=== PATIENT | male | born 1995 | race African-American/Black ===

== ENCOUNTER 2022-02-10 12:38 | Emergency (ER) | payer BC, SELFPAY ==
[2022-02-10] MEDS ORDERED: Ondansetron PF 4 MG/2 ML Vial ONE ×2 (13:16→15:48)
[2022-02-10 13:24] LABS: #Neutrophils 14.1 10x3/uL (1.5-8.4); %Basophils 0.1 % (0.0-2.0); %Lymphocytes 4.5 % (18.0-47.0); %Monocytes 6.3 % (0.0-10.0); %Neutrophils 88.7 % (40.0-75.0); Hemoglobin 15.2 g/dL (13.5-17.5); Mean Corpuscular HGB CONC 34.3 g/dL (32.0-36.0); Mean Corpuscular Hemoglobin 31.5 pg (27.0-33.0); Mean Corpuscular Volume 91.7 fl (81.2-95.1); Mean Platelet Volume 10.2 fl (7.4-10.4); Platelet Count 245 10x3/uL (150-450); RBC Distribution Width 15.6 % (11.5-14.5); Red Blood Cell (RBC) Count 4.83 10x6/uL (4.32-5.72); White Blood Cell (WBC) Count 15.8 10x3/uL (3.5-10.5)
[2022-02-10 13:44] LABS: ALT (SGPT) 47 U/L (8-55); AST (SGOT) 44 U/L (5-34); Albumin 4.8 g/dL (3.5-5.0); Alkaline Phosphatase 131 U/L (40-110); Anion Gap 22 mmol/L (10-20); BUN (Urea Nitrogen) 16 mg/dL (8.9-20.6); Bilirubin, Total 1.5 mg/dL (0.2-1.2); Calc. Creatinine Clearance 0 mL/min (70-130); Calcium 9.6 mg/dL (7.8-10.44); Carbon Dioxide 33 mmol/L (22-29); Chloride 90 mmol/L (98-107); Estimated GFR 52; Globulin 3.8 g/dL (2.4-3.5); Glucose 297 mg/dL (70-105); Lipase 22 U/L (8-78); Protein, Total 8.6 g/dL (6.0-8.3); Sodium 141 mmol/L (136-145)
[2022-02-10] MEDS ORDERED: Piperacillin/Tazobactam 3.375 GM VIAL ONE (15:06)
[2022-02-10] MEDS ORDERED: Bupivacaine 0.25% HCL 30 ML VIAL ONE (15:13)
[2022-02-10] MEDS ORDERED: EPINEPHrine 1 MG/ML AMP ONE (15:13)
[2022-02-10 15:19] LABS: Bilirubin 1+ (Negative); Blood, Urine 10 (Negative); Clarity Clear (Clear); Glucose, Urine (Dipstick) 50 mg/dL (Negative); Ketone, Urine 15 mg/dL (Negative); Leukocyte 25 (Negative); Nitrite Negative (Negative); Protein, Urine (Dipstick) 100 mg/dl (Neg-Trace)
[2022-02-10 15:28] LABS: SARS-CoV-2 NAA Rapid Test Not Detected (NotDetected)
[2022-02-10 15:28] LABS: Mucous/LPF 1+ LPF (<2+); WBC/HPF 0-3 HPF (0-3)
[2022-02-10] MEDS ORDERED: PROPOFOL 20 ML ONE (15:48)
[2022-02-10] MEDS ORDERED: Lidocaine 1% PF 5 ML VIAL ONE (15:48)
[2022-02-10] MEDS ORDERED: Dexamethasone 4 mg/ml Vial ONE (15:48)
[2022-02-10] MEDS ORDERED: Rocuronium Bromide 10 MG/ML (10ML VIAL) ONE (15:48)
[2022-02-10] MEDS ORDERED: Fentanyl 250 MCG/5 ML VIAL ONE (15:48)
[2022-02-10] MEDS ORDERED: Succinylcholine 200 MG/10 ml SYRINGE FS ONE (15:53)
[2022-02-10] MEDS ORDERED: Glycopyrrolate 0.2 MG/ML 5 ML SYRINGE ONE (16:37)
[2022-02-10] MEDS ORDERED: SUGAMMADEX SODIUM 200 MG/2 ML VIAL ONE (16:42)
[2022-02-10] MEDS ORDERED: HYDROcodone/Acetaminophen 5/325 mg Tablet ONE (18:03)
== END 2022-02-10 16:04 | disposition admitted as inpatient to this hospital (09) ==
LOC: CSHERS 12:38
DX: K35.80 Unspecified acute appendicitis (principal); Z20.822 Contact with and (suspected) exposure to COVID-19; F17.290 Nicotine dependence, other tobacco product, uncomplicated
CPT/HCPCS: 74177; 80053; 81003; 81015; 83690; 85025; 88304; 96374; 96375; A4649; J0171; J1100; J2405; J2543; J2704; J3010; S0020; U0002

== ENCOUNTER 2022-04-13 13:25 | Observation (INO) | payer SELFPAY ==
[2022-04-13 14:07] LABS: #Neutrophils 9.7 10x3/uL (1.5-8.4); %Basophils 0.3 % (0.0-2.0); %Eosinophils 0.2 % (0.0-6.0); %Lymphocytes 6.5 % (18.0-47.0); %Monocytes 8.7 % (0.0-10.0); %Neutrophils 83.9 % (40.0-75.0); Hemoglobin 16.3 g/dL (13.5-17.5); Mean Corpuscular HGB CONC 34.2 g/dL (32.0-36.0); Mean Corpuscular Hemoglobin 29.5 pg (27.0-33.0); Mean Corpuscular Volume 86.1 fl (81.2-95.1); Mean Platelet Volume 10.5 fl (7.4-10.4); Platelet Count 311 10x3/uL (150-450); Red Blood Cell (RBC) Count 5.53 10x6/uL (4.32-5.72); White Blood Cell (WBC) Count 11.6 10x3/uL (3.5-10.5)
[2022-04-13] MEDS ORDERED: Haloperidol Lactate 5 MG/ML VIAL ONE (14:11)
[2022-04-13 14:18] LABS: PTT 25.8 sec (22.0-33.0); Prothrombin Time 11.2 sec (9.5-12.1)
[2022-04-13 14:22] LABS: ALT (SGPT) 30 U/L (8-55); AST (SGOT) 49 U/L (5-34); Albumin 5.2 g/dL (3.5-5.0); Alkaline Phosphatase 142 U/L (40-110); Anion Gap 26 mmol/L (10-20); BUN (Urea Nitrogen) 12 mg/dL (8.9-20.6); Bilirubin, Total 1.3 mg/dL (0.2-1.2); Calc. Creatinine Clearance 0 mL/min (70-130); Carbon Dioxide 27 mmol/L (22-29); Chloride 93 mmol/L (98-107); Estimated GFR 62; Globulin 4.5 g/dL (2.4-3.5); Glucose 237 mg/dL (70-105); Potassium 4.3 mmol/L (3.5-5.1); Protein, Total 9.7 g/dL (6.0-8.3); Sodium 142 mmol/L (136-145)
[2022-04-13 14:31] LABS: CK (CPK) 766 U/L (30-200); Magnesium 1.4 mg/dL (1.6-2.6)
[2022-04-13 15:09] LABS: Bilirubin 1+ (Negative); Blood, Urine 150 (Negative); Glucose, Urine (Dipstick) 50 mg/dL (Negative); Ketone, Urine 15 mg/dL (Negative); Leukocyte 25 (Negative); Nitrite Positive (Negative); Protein, Urine (Dipstick) 500 mg/dl (Neg-Trace); Specific Gravity, Urine 1.025 (1.005-1.030)
[2022-04-13] MEDS ORDERED: Magnesium 2 GM/50 ML BAG (IN WATER) ONE (15:09)
[2022-04-13 15:17] LABS: Phosphorus 3.4 mg/dL (2.3-4.7)
[2022-04-13 15:29] LABS: Mucous/LPF 2+ LPF (<2+); Squamous Epithelial 0-3 HPF (0-3)
[2022-04-13 15:30] LABS: Bacteria/HPF 3+ HPF (None Seen)
[2022-04-13] MEDS ORDERED: cefTRIAXone\\ROCEPHIN 1 GM VIAL ONE (15:33)
[2022-04-13] MEDS ORDERED: Promethazine HCl 25 MG/ML VIAL ONE (16:13)
[2022-04-13 16:36] LABS: ALT (SGPT) 21 U/L (8-55); AST (SGOT) 37 U/L (5-34); Albumin 4.2 g/dL (3.5-5.0); Alkaline Phosphatase 111 U/L (40-110); Anion Gap 20 mmol/L (10-20); BUN (Urea Nitrogen) 12 mg/dL (8.9-20.6); CK (CPK) 794 U/L (30-200); Calc. Creatinine Clearance 0 mL/min (70-130); Calcium 8.3 mg/dL (7.8-10.44); Carbon Dioxide 27 mmol/L (22-29); Chloride 101 mmol/L (98-107); Estimated GFR 80; Globulin 3.4 g/dL (2.4-3.5); Glucose 116 mg/dL (70-105); Potassium 3.5 mmol/L (3.5-5.1); Protein, Total 7.6 g/dL (6.0-8.3); Sodium 144 mmol/L (136-145)
[2022-04-13 17:41] LABS: Actual Bicarbonate (HCO3v) 31 mEq/L (22-28); Base Excess 5.6 mEq/L (-2.0 to +3.0); Calcium, Ionized (venous) 0.98 mmol/L (1.16-1.32); Chloride (VBG) 101 mmol/L (98-106); Hemoglobin (Hb) 14.7 g/dL (13.2-17.3); Potassium (VBG) 3.53 mmol/L (3.70-5.30); Puncture Site Other Site; RapidComm Collect By LAB; Sodium 142.8 mmol/L (133-146); pH (venous) 7.44 (7.32-7.43)
[2022-04-13] MEDS ORDERED: Ondansetron ODT 4 MG TAB PO PRN (19:52)
[2022-04-13] MEDS ORDERED: Ondansetron PF 4 MG/2 ML Vial IVP PRN (19:52)
[2022-04-13] MEDS ORDERED: hydrALAZINE 20 MG/ML VIAL SLOW IVP PRN (19:57)
[2022-04-13] MEDS ORDERED: Promethazine HCl 12.5 MG in Sodium Chloride 0.9% 50 ML IVPB PRN (19:59)
[2022-04-13] MEDS ORDERED: Electrolyte Replacement Protocol 1 EACH FS PRN (20:00)
[2022-04-13] MEDS: Famotidine/PF 20 mg/2ml Vial SLOW IVP SCH (20:21)
[2022-04-13] MEDS: Sodium Chloride 0.9% 1,000 ML IV SCH (20:21)
[2022-04-13 20:39] LABS: Amphetamine Not Detected (NotDetected); Barbiturates Screen Not Detected (NotDetected); Benzodiazepine Screen Not Detected (NotDetected); Cocaine Metabolite Screen Not Detected (NotDetected); Methadone Not Detected (NotDetected); Methamphetamine Not Detected (NotDetected); Opiate Screen Not Detected (NotDetected); Oxycodone Screen Not Detected (NotDetected); Phencyclidine (PCP) Not Detected (NotDetected); THC/Cannabinoid Screen Detected (NotDetected); Tricyclic Screen Not Detected (NotDetected)
[2022-04-13] MEDS ORDERED: Potassium Chloride 20 MEQ TAB PO SCH (20:45)
[2022-04-13] MEDS ORDERED: Magnesium 2 GM/50 ML(in water) 2 GM in Premix Bag 1 BAG IVPB SCH (20:45)
[2022-04-13] MEDS ORDERED: HYDROcodone/Acetaminophen 5/325 mg Tablet PO SCH (21:00)
[2022-04-13 21:32] LABS: SARS-CoV-2 NAA Rapid Test Not Detected (NotDetected)
[2022-04-13 22:40] LABS: ALT (SGPT) 23 U/L (8-55); AST (SGOT) 45 U/L (5-34); Alkaline Phosphatase 99 U/L (40-110); Anion Gap 14 mmol/L (10-20); BUN (Urea Nitrogen) 12 mg/dL (8.9-20.6); Bilirubin, Total 0.6 mg/dL (0.2-1.2); Calc. Creatinine Clearance 72 mL/min (70-130); Calcium 8.2 mg/dL (7.8-10.44); Carbon Dioxide 28 mmol/L (22-29); Chloride 104 mmol/L (98-107); Estimated GFR 86; Glucose 101 mg/dL (70-105); Potassium 3.7 mmol/L (3.5-5.1); Sodium 142 mmol/L (136-145)
[2022-04-14] MEDS: Sodium Chloride 0.9% 1,000 ML IV SCH (04:16)
[2022-04-14 05:24] LABS: Hemoglobin 12.9 g/dL (13.5-17.5); Mean Corpuscular HGB CONC 33.8 g/dL (32.0-36.0); Mean Corpuscular Hemoglobin 29.6 pg (27.0-33.0); Mean Corpuscular Volume 87.6 fl (81.2-95.1); Mean Platelet Volume 10.7 fl (7.4-10.4); Platelet Count 177 10x3/uL (150-450); RBC Distribution Width 15.5 % (11.5-14.5); Red Blood Cell (RBC) Count 4.36 10x6/uL (4.32-5.72); White Blood Cell (WBC) Count 12.1 10x3/uL (3.5-10.5)
[2022-04-14 05:25] LABS: #Monocytes 0.9 10x3/uL (0.0-1.1); #Neutrophils 7.6 10x3/uL (1.5-8.4); %Basophils 0.3 % (0.0-2.0); %Eosinophils 0.3 % (0.0-6.0); %Lymphocytes 25.8 % (18.0-47.0); %Neutrophils 65.3 % (40.0-75.0)
[2022-04-14 05:43] LABS: ALT (SGPT) 19 U/L (8-55); AST (SGOT) 40 U/L (5-34); Albumin 3.5 g/dL (3.5-5.0); Alkaline Phosphatase 92 U/L (40-110); Anion Gap 13 mmol/L (10-20); BUN (Urea Nitrogen) 11 mg/dL (8.9-20.6); Bilirubin, Total 0.7 mg/dL (0.2-1.2); CK (CPK) 1511 U/L (30-200); Calc. Creatinine Clearance 81 mL/min (70-130); Calcium 8.2 mg/dL (7.8-10.44); Carbon Dioxide 26 mmol/L (22-29); Chloride 108 mmol/L (98-107); Estimated GFR 99; Globulin 2.8 g/dL (2.4-3.5); Glucose 81 mg/dL (70-105); Magnesium 2.8 mg/dL (1.6-2.6); Potassium 3.9 mmol/L (3.5-5.1); Protein, Total 6.3 g/dL (6.0-8.3); Sodium 143 mmol/L (136-145)
[2022-04-14 08:15] VITALS: BP 128/83; TEMP 98.5
[2022-04-14] MEDS: Famotidine/PF 20 mg/2ml Vial SLOW IVP SCH (08:17)
[2022-04-14 13:10] LABS: Hemoglobin A1c 4.8 % (4.0-6.0)
[2022-04-14] MEDS ORDERED: cefTRIAXone\\ROCEPHIN 1 GM in Sodium Chloride 0.9% 100 ML IVPB SCH (18:00)
== END 2022-04-14 13:00 | disposition home or self-care (01) ==
LOC: CSHERS 13:25 → CSHTELE 19:18
PROVIDERS: ADMIT Family Medicine; ATTEND Family Medicine
DX: M62.82 Rhabdomyolysis (principal); R11.2 Nausea with vomiting, unspecified; F17.290 Nicotine dependence, other tobacco product, uncomplicated; N30.90 Cystitis, unspecified without hematuria; R73.9 Hyperglycemia, unspecified; Z20.822 Contact with and (suspected) exposure to COVID-19; E83.42 Hypomagnesemia; N17.9 Acute kidney failure, unspecified; Z79.899 Other long term (current) drug therapy
CPT/HCPCS: 36415; 36416; 71045; 74176; 80053; 80306; 81003; 81015; 82010; 82550; 82805; 83036; 83735; 83930; 84100; 84443; 85025; 85610; 85730; 87086; 94760; 96375; 96376; G0378; J0696; J1630; J2405; J2550; J3475; J7050; S0028; U0002

== ENCOUNTER 2024-06-11 23:59 | Emergency (ER) | payer SELFPAY ==
[2024-06-12 00:46] LABS: #Basophils 0.04 10x3/uL (0.0-0.2); #Eosinophils 0.04 10x3/uL (0.0-0.5); #Monocytes 0.49 10x3/uL (0.0-1.1); #Neutrophils 3.07 10x3/uL (1.5-8.4); %Basophils 0.6 % (0.0-2.0); %Eosinophils 0.6 % (0.0-6.0); %Lymphocytes 49.8 % (18.0-47.0); %Monocytes 6.7 % (0.0-10.0); %Neutrophils 42.2 % (40.0-75.0); Hematocrit 47.2 % (38.8-50.0); Hemoglobin 15.6 g/dL (13.5-17.5); Mean Corpuscular HGB CONC 33.1 g/dL (32.0-36.0); Mean Corpuscular Hemoglobin 29.3 pg (27.0-33.0); Mean Corpuscular Volume 88.7 fL (81.2-95.1); Mean Platelet Volume 9.1 fL (7.4-10.4); Platelet Count 271 10x3/uL (150-450); RBC Distribution Width 13.8 % (11.5-14.5); Red Blood Cell (RBC) Count 5.32 10x6/uL (4.32-5.72); White Blood Cell (WBC) Count 7.3 10x3/uL (3.5-10.5)
[2024-06-12 00:57] LABS: ALT (SGPT) 75 U/L (8-55); AST (SGOT) 95 U/L (5-34); Alkaline Phosphatase 124 U/L (40-110); Anion Gap 22 mmol/L (10-20); BUN (Urea Nitrogen) 11 mg/dL (8.9-20.6); Bilirubin, Total 0.3 mg/dL (0.2-1.2); CK (CPK) 248 U/L (30-200); Calc. Creatinine Clearance 0 mL/min (70-130); Calcium 8.6 mg/dL (7.8-10.44); Carbon Dioxide 23 mmol/L (22-29); Chloride 103 mmol/L (98-107); Estimated GFR 121; Globulin 3.6 g/dL (2.4-3.5); Glucose 87 mg/dL (70-105); Potassium 4.3 mmol/L (3.5-5.1); Protein, Total 7.6 g/dL (6.0-8.3); Sodium 144 mmol/L (136-145)
[2024-06-12 00:59] LABS: Acetaminophen Less than 10 mcg/mL (Less than 10); Alcohol 400.3 mg/dL (Less than 10); Lipase 88 U/L (8-78); Magnesium 1.9 mg/dL (1.6-2.6); Salicylate Less than 8.0 mg/dL (Less than 8.0)
[2024-06-12] MEDS ORDERED: Haloperidol Lactate 5 MG/ML VIAL ONE (01:13)
[2024-06-12] MEDS ORDERED: Ondansetron PF 4 MG/2 ML Vial ONE (01:13)
== END 2024-06-12 02:23 | disposition home or self-care (01) ==
LOC: CSHERS 23:59
DX: F10.129 Alcohol abuse with intoxication, unspecified (principal); R11.2 Nausea with vomiting, unspecified; F14.10 Cocaine abuse, uncomplicated; F17.290 Nicotine dependence, other tobacco product, uncomplicated; Z55.6 Problems related to health literacy
CPT/HCPCS: 36415; 36416; 70450; 71045; 80053; 80307; 82550; 83690; 83735; 85025; 93005; 96361; 96374; 96375; J1630; J2405